=== PATIENT | female | born 1945 | race Caucasian/White ===

== ENCOUNTER → 2017-12-23 08:12 | Outpatient (CLI) | payer MEDICARE, SELFPAY ==
--- NOTE | 2017-12-23 | DI.MG.S_ITS ---
BILATERAL DIGITAL SCREENING MAMMOGRAM 3D/2D WITH CAD: 12/23/2017 CLINICAL: Routine screening. Comparison is made to exams dated: 12/21/2016 mammogram, 12/21/2015 mammogram, and 12/26/2014 mammogram - [facility]. The tissue of both breasts is heterogeneously dense. This may lower the sensitivity of mammography. Current study was also evaluated with a Computer Aided Detection (CAD) system. No significant masses, calcifications, or other findings are seen in either breast. There has been no significant interval change. IMPRESSION: NEGATIVE There is no mammographic evidence of malignancy. A 1 year screening mammogram is recommended. This exam was interpreted at Station ID: [id number]. NOTE: For mammograms, a report in lay terms will be sent to the patient. Approximately 15% of breast malignancies will not be visualized mammographically. In the management of a palpable breast mass, a negative mammogram must not discourage biopsy of a clinically suspicious lesion. Electronically Signed By: Katty will/lamont:12/26/2017 07:44:42 letter sent: Normal Exam ACR BI-RADS Category 1: Negative 3341F
== END ==
PROVIDERS: Family Provider Family Medicine; PCP Family Medicine; Visit Provider Family Medicine
DX: Z12.31 Encounter for screening mammogram for malignant neoplasm of breast (principal)
CPT/HCPCS: 77063; 77067

== ENCOUNTER → 2018-05-08 13:00 | Outpatient (CLI) | payer MEDICARE, SELFPAY | PROVIDERS: Family Provider Family Medicine; PCP Family Medicine | DX: Z23 Encounter for immunization (principal) | CPT/HCPCS: 90471; 90662 ==

== ENCOUNTER → 2018-12-14 09:29 | Outpatient (CLI) | payer MEDICARE, SELFPAY ==
[2018-12-14 10:16] LABS: Add Manual Diff / Slide Review NO; Basophils Absolute Auto 0 /uL (0-100); Basophils Percent Auto 0.6 % (0-2); Eosinophils Absolute Auto 100 /uL (0-450); Eosinophils Percent Auto 2.4 % (2-4); Hematocrit 37.5 % (36-46); Hemoglobin 12.8 g/dL (12.0-16.0); Lymphocytes Absolute Auto 1400 /uL (1100-4500); Lymphocytes Percent Auto 30.9 % (25-40); Mean Corpuscular HGB Conc 34.1 % (30-36); Monocytes Absolute Auto 400 /uL (0-900); Monocytes Percent Auto 7.7 % (3-14); Neutrophils Absolute Auto 2600 /uL (1500-7000); Neutrophils Percent Auto 58.4 % (50-75); Platelet Count 212 X10^3/uL (150-400); Red Blood Cell Count 3.99 X10^6/uL (4.0-5.2); Red Cell Distribution Width 14.2 % (11.6-14.8); White Blood Cell Count 4.5 X10^3/uL (4.5-11.0)
[2018-12-14 11:01] LABS: Alanine Aminotransferase 37 IU/L (9-52); Albumin 4.3 g/dL (3.5-5.0); Albumin Globulin Ratio 1.5 (1.0-2.8); Alkaline Phosphatase 106 U/L (38-126); Aspartate Aminotransferase 47 IU/L (14-36); BUN Creatinine Ratio 32.9 (6-22); Bilirubin Total 0.5 mg/dL (0.2-1.3); Blood Urea Nitrogen 23 mg/dL (7-17); Calcium 9.5 mg/dL (8.4-10.2); Carbon Dioxide 26 mmol/L (22-32); Chloride 106 mmol/L (98-107); Cholesterol 185 mg/dL (140-199); Estimated Glomerular Filt Rate > 60.0 mL/min (>60); Globulin 2.8 g/dL (1.7-4.1); Glucose 97 mg/dL (80-110); HDL Cholesterol 66 mg/dL (40-60); HEMOLYSIS < 15 (0-50); LDL Cholesterol Calculated 101 mg/dL (<100); Potassium 4.4 mmol/L (3.4-5.1); Sodium 142 mmol/L (137-145); Total Protein 7.1 g/dL (6.3-8.2); Triglycerides 88 mg/dL (35-150)
[2018-12-14 11:30] LABS: Thyroid Stimulating Hormone 0.83 uIU/mL (0.47-4.68)
== END ==
PROVIDERS: PCP Family Medicine; Visit Provider Family Medicine
DX: E03.9 Hypothyroidism, unspecified (principal); E78.5 Hyperlipidemia, unspecified
CPT/HCPCS: 36415; 80053; 80061; 84443; 85025

== ENCOUNTER → 2018-12-26 15:25 | Outpatient (CLI) | payer MEDICARE, SELFPAY ==
--- NOTE | 2018-12-26 | DI.MG.S_ITS ---
BILATERAL DIGITAL SCREENING MAMMOGRAM 3D/2D WITH CAD: 12/26/2018 CLINICAL: Routine screening. Comparison is made to exams dated: 12/23/2017 mammogram, 12/21/2016 mammogram, and 12/21/2015 mammogram - [facility]. The tissue of both breasts is heterogeneously dense. This may lower the sensitivity of mammography. Current study was also evaluated with a Computer Aided Detection (CAD) system. No significant masses, calcifications, or other findings are seen in either breast. There has been no significant interval change. IMPRESSION: NEGATIVE There is no mammographic evidence of malignancy. A 1 year screening mammogram is recommended. This exam was interpreted at Station ID: [id number]. NOTE: For mammograms, a report in lay terms will be sent to the patient. Approximately 15% of breast malignancies will not be visualized mammographically. In the management of a palpable breast mass, a negative mammogram must not discourage biopsy of a clinically suspicious lesion. Electronically Signed By: Jaden del rosario/lamont:12/26/2018 18:46:42 letter sent: Normal Exam ACR BI-RADS Category 1: Negative 3341F
== END ==
PROVIDERS: PCP Family Medicine; Visit Provider Family Medicine
DX: Z12.31 Encounter for screening mammogram for malignant neoplasm of breast (principal)
CPT/HCPCS: 77063; 77067

== ENCOUNTER → 2019-04-25 08:43 | Outpatient (CLI) | payer MEDICARE, SELFPAY | PROVIDERS: PCP Family Medicine | DX: Z23 Encounter for immunization (principal) | CPT/HCPCS: 90471; 90662 ==

== ENCOUNTER → 2019-12-31 07:18 | Outpatient (CLI) | payer MEDICARE, SELFPAY ==
--- NOTE | 2019-12-31 | DI.MG.S_ITS ---
BILATERAL DIGITAL SCREENING MAMMOGRAM 3D/2D WITH CAD: 12/31/2019 CLINICAL: Routine screening. Comparison is made to exams dated: 12/26/2018 mammogram, 12/23/2017 mammogram, 12/21/2016 mammogram, 12/18/2014 mammogram, and 12/17/2013 mammogram - [facility]. The tissue of both breasts is heterogeneously dense. This may lower the sensitivity of mammography. Current study was also evaluated with a Computer Aided Detection (CAD) system. No significant masses, calcifications, or other findings are seen in either breast. There has been no significant interval change. IMPRESSION: NEGATIVE There is no mammographic evidence of malignancy. A 1 year screening mammogram is recommended. This exam was interpreted at Station ID: [id number]. NOTE: For mammograms, a report in lay terms will be sent to the patient. Approximately 15% of breast malignancies will not be visualized mammographically. In the management of a palpable breast mass, a negative mammogram must not discourage biopsy of a clinically suspicious lesion. Electronically Signed By: Jaden del rosario/lamont:12/31/2019 15:34:02 letter sent: Normal Exam ACR BI-RADS Category 1: Negative 3341F
[2019-12-31 08:07] LABS: Add Manual Diff / Slide Review NO; Basophils Absolute Auto 0 /uL (0-100); Basophils Percent Auto 0.6 % (0-2); Eosinophils Absolute Auto 100 /uL (0-450); Eosinophils Percent Auto 2.8 % (2-4); Hematocrit 37.4 % (36-46); Lymphocytes Absolute Auto 1600 /uL (1100-4500); Lymphocytes Percent Auto 34.8 % (25-40); Mean Corpuscular HGB Conc 34.8 % (30-36); Mean Corpuscular Hemoglobin 33.4 PG (26-34); Monocytes Absolute Auto 400 /uL (0-900); Monocytes Percent Auto 8.6 % (3-14); Neutrophils Absolute Auto 2500 /uL (1500-7000); Neutrophils Percent Auto 53.2 % (50-75); Platelet Count 203 X10^3/uL (150-400); Red Cell Distribution Width 13.7 % (11.6-14.8); White Blood Cell Count 4.7 X10^3/uL (4.5-11.0)
[2019-12-31 08:19] LABS: Alanine Aminotransferase 37 IU/L (<35); Albumin 4.7 g/dL (3.5-5.0); Albumin Globulin Ratio 1.5 (1.0-2.8); Alkaline Phosphatase 108 U/L (38-126); Aspartate Aminotransferase 50 IU/L (14-36); BUN Creatinine Ratio 36.1 (6-22); Bilirubin Total 0.4 mg/dL (0.2-1.3); Blood Urea Nitrogen 26 mg/dL (7-17); Calcium 9.9 mg/dL (8.4-10.2); Carbon Dioxide 30 mmol/L (22-32); Chloride 105 mmol/L (98-107); Cholesterol 182 mg/dL (140-199); Estimated Glomerular Filt Rate > 60.0 mL/min (>60); Globulin 3.1 g/dL (1.7-4.1); Glucose 109 mg/dL (80-110); HDL Cholesterol 53 mg/dL (40-60); HEMOLYSIS < 15 (0-50); LDL Cholesterol Calculated 103 mg/dL (<100); Potassium 4.4 mmol/L (3.4-5.1); Sodium 142 mmol/L (137-145); Total Protein 7.8 g/dL (6.3-8.2); Triglycerides 131 mg/dL (35-150)
[2019-12-31 10:38] LABS: TSH w/ Reflex to FT4 0.59 uIU/mL (0.47-4.68)
== END ==
PROVIDERS: PCP Family Medicine; Referring Provider Family Medicine; Visit Provider Family Medicine
DX: Z12.31 Encounter for screening mammogram for malignant neoplasm of breast (principal); E03.9 Hypothyroidism, unspecified; E78.5 Hyperlipidemia, unspecified; I10 Essential (primary) hypertension
CPT/HCPCS: 36415; 77063; 77067; 80053; 80061; 84443; 85025

== ENCOUNTER → 2020-02-03 08:24 | Outpatient (CLI) | payer MEDICARE, SELFPAY ==
[2020-02-03 09:30] LABS: BUN Creatinine Ratio 30.2 (6-22); Blood Urea Nitrogen 19 mg/dL (7-17); Calcium 9.8 mg/dL (8.4-10.2); Carbon Dioxide 32 mmol/L (22-32); Chloride 102 mmol/L (98-107); Estimated Glomerular Filt Rate > 60.0 mL/min (>60); Glucose 105 mg/dL (80-110); HEMOLYSIS < 15 (0-50); Potassium 4.3 mmol/L (3.4-5.1); Sodium 139 mmol/L (137-145)
[2020-02-03 10:02] LABS: Thyroid Stimulating Hormone 0.359 uIU/mL (0.47-4.68)
--- NOTE | 2020-02-03 10:44 | DI.CT.S_ITS ---
PROCEDURE: CT ABDOMEN PELVIS W CON INDICATIONS: Surveillance small bowel tumor TECHNIQUE: After the administration of oral and intravenous contrast, 5 mm thick sections acquired from the diaphragms to the symphysis. 5 mm thick coronal and sagittal reformats were performed. For radiation dose reduction, the following was used: automated exposure control, adjustment of mA and/or kV according to patient size. COMPARISON: [facility], CT, ABDOMEN/PELVIS WITH CONTRAST, 06/04/2013, 10:13. [facility], CT, ABDOMEN/PELVIS WITH CONTRAST, 06/29/2012, 11:08. [facility], CT, CHEST/ABD/PEL WITH CONTRAST, 05/26/2014, 10:30. FINDINGS: Image quality: Excellent. ABDOMEN: Lung bases: Lung bases are clear. Heart size is normal. Solid organs: Liver is normal in size and enhancement. Gallbladder appears normal. Biliary system is non-dilated. Pancreas enhances normally. Spleen is normal in size and enhancement. No adrenal nodules. Kidneys are normal in size and enhancement, without hydronephrosis. Peritoneum and bowel: Stomach, small bowel, and colon loops are normal in caliber and wall thickness. No free fluid or air. Nodes and vessels: No retroperitoneal or mesenteric adenopathy. Aorta and inferior vena cava are normal in caliber. Miscellaneous: No ventral hernias. PELVIS: Genitourinary: Bladder wall thickness is normal. Multiple uterine fibroids noted Miscellaneous: No inguinal hernias or adenopathy. Bones: No suspicious bony lesions. No vertebral body compression fractures. 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 Currently the study appears normal for age. Dictated by: Juan France M.D. on 02/03/2020 at 12:11 Approved by: Juan France M.D. on 02/03/2020 at 12:34
== END ==
PROVIDERS: PCP Family Medicine; Referring Provider Family Medicine; Visit Provider Family Medicine
DX: Z01.812 Encounter for preprocedural laboratory examination (principal); D3A.012 Benign carcinoid tumor of the ileum; E03.9 Hypothyroidism, unspecified; D25.9 Leiomyoma of uterus, unspecified
CPT/HCPCS: 36415; 74177; 80048; 84443

== ENCOUNTER → 2020-05-21 | Outpatient (CLI) | payer MEDICARE, SELFPAY | PROVIDERS: PCP Family Medicine; Referring Provider Internal Medicine; Visit Provider Internal Medicine | DX: Z23 Encounter for immunization (principal) | CPT/HCPCS: 90471; 90662 ==

== ENCOUNTER → 2020-12-31 15:55 | Outpatient (CLI) | payer MEDICARE, SELFPAY ==
--- NOTE | 2020-12-31 | DI.MG.S_ITS ---
BILATERAL DIGITAL SCREENING MAMMOGRAM 3D/2D WITH CAD: 12/31/2020 CLINICAL: Routine screening. Comparison is made to exams dated: 12/31/2019 mammogram, 12/26/2018 mammogram, and 12/23/2017 mammogram - [facility]. The tissue of both breasts is heterogeneously dense. This may lower the sensitivity of mammography. Current study was also evaluated with a Computer Aided Detection (CAD) system. No significant masses, calcifications, or other findings are seen in either breast. There has been no significant interval change. IMPRESSION: NEGATIVE There is no mammographic evidence of malignancy. A 1 year screening mammogram is recommended. This exam was interpreted at Station ID: [id number]. NOTE: For mammograms, a report in lay terms will be sent to the patient. Approximately 15% of breast malignancies will not be visualized mammographically. In the management of a palpable breast mass, a negative mammogram must not discourage biopsy of a clinically suspicious lesion. Electronically Signed By: Christy guevara/lamont:12/31/2020 17:33:47 letter sent: Normal Exam ACR BI-RADS Category 1: Negative 3341F
== END ==
PROVIDERS: PCP Family Medicine; Referring Provider Family Medicine; Visit Provider Family Medicine
DX: Z12.31 Encounter for screening mammogram for malignant neoplasm of breast (principal)
CPT/HCPCS: 77063; 77067

== ENCOUNTER → 2021-02-11 08:36 | Outpatient (CLI) | payer MEDICARE, SELFPAY ==
[2021-02-11 09:46] LABS: Add Manual Diff / Slide Review NO; Basophils Absolute Auto 0 /uL (0-100); Basophils Percent Auto 0.6 % (0-2); Eosinophils Absolute Auto 100 /uL (0-450); Eosinophils Percent Auto 2.7 % (2-4); Hematocrit 36.8 % (36-46); Hemoglobin 12.4 g/dL (12.0-16.0); Lymphocytes Absolute Auto 1500 /uL (1100-4500); Lymphocytes Percent Auto 33.2 % (25-40); Mean Corpuscular HGB Conc 33.7 % (30-36); Mean Corpuscular Hemoglobin 32.7 PG (26-34); Mean Corpuscular Volume 97.2 fL (80-100); Monocytes Absolute Auto 300 /uL (0-900); Monocytes Percent Auto 6.5 % (3-14); Neutrophils Absolute Auto 2600 /uL (1500-7000); Platelet Count 216 X10^3/uL (150-400); Red Blood Cell Count 3.78 X10^6/uL (4.0-5.2); Red Cell Distribution Width 12.9 % (11.6-14.8); White Blood Cell Count 4.6 X10^3/uL (4.5-11.0)
[2021-02-11 09:53] LABS: Alanine Aminotransferase 28 IU/L (<35); Albumin 4.3 g/dL (3.5-5.0); Albumin Globulin Ratio 1.5 (1.0-2.8); Alkaline Phosphatase 84 U/L (38-126); Aspartate Aminotransferase 42 IU/L (14-36); BUN Creatinine Ratio 33.3 (6-22); Bilirubin Total 0.3 mg/dL (0.2-1.3); Blood Urea Nitrogen 23 mg/dL (7-17); Calcium 9.6 mg/dL (8.4-10.2); Carbon Dioxide 27 mmol/L (22-32); Chloride 107 mmol/L (98-107); Cholesterol 180 mg/dL (140-199); Estimated Glomerular Filt Rate > 60.0 mL/min (>60); Globulin 2.9 g/dL (1.7-4.1); Glucose 93 mg/dL (80-110); HDL Cholesterol 64 mg/dL (40-60); HEMOLYSIS < 15 (0-50); LDL Cholesterol Calculated 89 mg/dL (<100); Potassium 4.2 mmol/L (3.4-5.1); Sodium 141 mmol/L (137-145); Total Protein 7.2 g/dL (6.3-8.2); Triglycerides 136 mg/dL (35-150)
[2021-02-11 10:44] LABS: Thyroid Stimulating Hormone 1.16 uIU/mL (0.47-4.68)
== END ==
PROVIDERS: PCP Family Medicine; Referring Provider Family Medicine; Visit Provider Family Medicine
DX: E03.9 Hypothyroidism, unspecified (principal); I10 Essential (primary) hypertension; E78.5 Hyperlipidemia, unspecified
CPT/HCPCS: 36415; 80053; 80061; 84443; 85025

== ENCOUNTER 2021-02-24 03:46 | Observation (INO) | payer MEDICARE, SELFPAY ==
[2021-02-24] VITALS (11 sets, daily range): BP systolic 147–192; BP diastolic 79–95; PULSE 66–94; RESP 15–22; TEMP 36.4–37.1; O2SAT 98–99; BMI 21.6
--- NOTE | 2021-02-24 04:02 | PC.NURSE ---
Patient stated that she woke up feeling shaky and was worried about hypertension or thyroid issues and came in to be assessed.
--- NOTE | 2021-02-24 04:09 | DI.RAD.S_ITS ---
PROCEDURE: XR CHEST 1V INDICATIONS: palpitations TECHNIQUE: One view of the chest was acquired. COMPARISON: None. FINDINGS: Surgical changes and devices: None. Lungs and pleura: Lungs are clear. No pleural effusions or pneumothorax. Mediastinum: Mediastinal contours appear normal. Heart size is normal. Bones and chest wall: No suspicious bony lesions. Overlying soft tissues appear unremarkable. IMPRESSION: No acute cardiopulmonary disease process. Dictated by: Manuela Varghese MD, PhD on 02/24/2021 at 8:18 Approved by: Manuela Varghese MD, PhD on 02/24/2021 at 8:18
--- NOTE | 2021-02-24 04:12 | ED_ITS ---
HPI - Anxiety <Maxime Martin MD - Last Filed: 02/27/21 11:51> General Chief Complaint: Anxiety Stated Complaint: jama, anxious Time Seen by Provider: 02/24/21 03:58 Source: patient Mode of arrival: Ambulatory History of Present Illness HPI narrative: Patient awoke this morning an hour ago from sleep with feeling anxious. Describes as palpitations and with effort to catch her breath. Denies denies any chest pain. No headache. No numbness tingling weakness no nausea or sweating. No abdominal pain or back pain. Similar symptoms with her onset of diagnosis of hypothyroidism. Patient denies any recent stressors. No changes in medications. No recent illness fever chills cough cold congestion. Related Data Home Medications Medication Instructions Recorded Confirmed CALCIUM CITRATE (CITRACAL ) 200 mg PO BIDCC #0 11/07/12 02/24/21 FOLIC ACID (#FAMILY PHARMACY FOLIC 0.4 mg PO Q DAY #0 11/07/12 02/24/21 ACID) MULTIVITAMIN (#MULTIPLE VITAMINS) 1 cap PO Q DAY #0 11/07/12 02/24/21 mecobalamin (vitamin B12) 1,000 1,000 mcg PO DAILY 12/30/19 02/24/21 mcg chewable tablet omega-3 fatty acids 1,000 mg 1,000 mg PO DAILY 12/30/20 12/30/20 capsule (Fish Oil Concentrate) Previous Rx's Medication Instructions Recorded levothyroxine 75 mcg tablet 75 mcg PO Q DAY #90 tab 12/30/19 (Synthroid) lisinopril 20 mg tablet 20 mg PO DAILY #90 tab 03/02/20 lovastatin 20 mg tablet 20 mg PO DAILY #90 tab 03/02/20 pantoprazole 40 mg tablet,delayed 40 mg PO QDAY #90 tab 11/16/20 release (Protonix) lovastatin 40 mg tablet 40 mg PO BEDTIME #90 tab 02/15/21 hydrochlorothiazide 12.5 mg tablet 25 mg PO DAILY #90 tab 02/25/21 Allergies Allergy/AdvReac Type Severity Reaction Status Date / Time No Known Drug Allergies Allergy Verified 12/30/20 15:24 Review of Systems <Maxime Martin MD - Last Filed: 02/27/21 11:51> Review of Systems Narrative: GENERAL: Denies chills, fatigue, malaise, fever, sweats. 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 EYES: Pupils equal round No scleral icterus. No injection no discharge ENT: Mucous membranes moist. NECK: Trachea midline. Slightly enlarged thyroid CARDIOVASCULAR: Regular rate and rhythm without murmurs RESPIRATORY: Clear to auscultation. Breath sounds equal bilaterally. No wheezes, rales, or rhonchi. GASTROINTESTINAL: Abdomen soft, non-tender EXTREMITIES: No gross deformities. BACK: No flank tenderness. NEURO: AOx4. SKIN: Warm and dry PSYCH: Not anxious, is cooperative Initial Vital Signs Initial Vital Signs: Vital Signs Pulse Rate 94 H 02/24/21 03:53 Pulse Oximetry 99 02/24/21 03:53 <Carrol Wing DO - Last Filed: 02/24/21 19:06> Initial Vital Signs Initial Vital Signs: Vital Signs Pulse Rate 94 H 02/24/21 03:53 Pulse Oximetry 99 02/24/21 03:53 Course <Maxime Martin MD - Last Filed: 02/27/21 11:51> Course Course Narrative: No new issues during course of stay. No chest pain. Orders Ordered: Discontinued Medications Acetaminophen (Acetaminophen 325 Mg Tablet) 650 mg PO Q6HR PRN PRN Reason: Fever/Mild Pain (1-3) Aspirin (Aspirin 81 Mg Chew Tab) 324 mg PO NOW ONE Stop: 02/24/21 06:00 Last Admin: 02/24/21 06:13 Dose: 324 mg Documented by: JOSE Aspirin (Aspirin Ec 81 Mg Tablet) 81 mg PO DAILY [facility] Atorvastatin Calcium (Atorvastatin 20 Mg Tablet) 20 mg PO BEDTIME [facility] Hydrochlorothiazide (Hydrochlorothiazide 25 Mg Tablet) 12.5 mg PO DAILY [facility] Levothyroxine Sodium (Levothyroxine 75 Mcg Tablet) 75 mcg PO DAILY@0600 [facility] Lisinopril (Lisinopril 20 Mg Tablet) 20 mg PO NOW ONE Stop: 02/24/21 06:29 Last Admin: 02/24/21 08:48 Dose: 20 mg Documented by: FEDERICO Lisinopril (Lisinopril 20 Mg Tablet) 20 mg PO DAILY [facility] Last Admin: 02/24/21 10:40 Dose: 20 mg Documented by: ELKIN Morphine Sulfate (Morphine 2 Mg/Ml Inj) 2 mg IV Q5MIN PRN PRN Reason: Chest Pain Naloxone HCl (Naloxone 0.4 Mg/Ml Vial) 0.2 mg IV Q2MIN PRN PRN Reason: Opiate Reversal Nitroglycerin (Nitroglycerin 0.4 Mg Sl Tab) 0.4 mg SL [id number] PRN PRN Reason: Chest Pain Pantoprazole Sodium (Pantoprazole Dr 40 Mg Tablet) 40 mg PO 0700 [facility] Reevaluation(s) Reevaluation #1: Spoke with patient and results and agree for admission for a stress test. Time: 06:50 Consultations Consultation #1: Spoke with Dr. Chi, cardiology, who recommends patient for treadmill stress test and echocardiogram Consultation #2: Spoke with Dr. Harper, on-call provider for primary care physician, will admit Vital Signs Vital signs: Vital Signs - 8 hr 02/24/21 03:53 02/24/21 03:56 02/24/21 04:00 Temperature 98.1 F Pulse Rate 94 H 91 H 84 Respiratory Rate 22 18 Blood Pressure 157/85 H 182/81 H Pulse Oximetry 99 98 99 02/24/21 04:30 02/24/21 05:00 02/24/21 05:30 Temperature Pulse Rate 73 71 66 Respiratory Rate 18 17 15 Blood Pressure 183/81 H 180/81 H 171/79 H Pulse Oximetry 99 98 98 02/24/21 06:00 Temperature Pulse Rate 67 Respiratory Rate 18 Blood Pressure 177/81 H Pulse Oximetry 98 <Carrol Wing, DO - Last Filed: 02/24/21 19:06> Orders Ordered: Discontinued Medications Acetaminophen (Acetaminophen 325 Mg Tablet) 650 mg PO Q6HR PRN PRN Reason: Fever/Mild Pain (1-3) Aspirin (Aspirin 81 Mg Chew Tab) 324 mg PO NOW ONE Stop: 02/24/21 06:00 Last Admin: 02/24/21 06:13 Dose: 324 mg Documented by: JOSE Aspirin (Aspirin Ec 81 Mg Tablet) 81 mg PO DAILY [facility] Atorvastatin Calcium (Atorvastatin 20 Mg Tablet) 20 mg PO BEDTIME [facility] Hydrochlorothiazide (Hydrochlorothiazide 25 Mg Tablet) 12.5 mg PO DAILY [facility] Levothyroxine Sodium (Levothyroxine 75 Mcg Tablet) 75 mcg PO DAILY@0600 [facility] Lisinopril (Lisinopril 20 Mg Tablet) 20 mg PO NOW ONE Stop: 02/24/21 06:29 Last Admin: 02/24/21 08:48 Dose: 20 mg Documented by: FEDERICO Lisinopril (Lisinopril 20 Mg Tablet) 20 mg PO DAILY [facility] Last Admin: 02/24/21 10:40 Dose: 20 mg Documented by: ELKIN Morphine Sulfate (Morphine 2 Mg/Ml Inj) 2 mg IV Q5MIN PRN PRN Reason: Chest Pain Naloxone HCl (Naloxone 0.4 Mg/Ml Vial) 0.2 mg IV Q2MIN PRN PRN Reason: Opiate Reversal Nitroglycerin (Nitroglycerin 0.4 Mg Sl Tab) 0.4 mg SL [id number] PRN PRN Reason: Chest Pain Pantoprazole Sodium (Pantoprazole Dr 40 Mg Tablet) 40 mg PO 0700 [facility] Vital Signs Vital signs: Vital Signs - 8 hr 02/24/21 03:53 02/24/21 03:56 02/24/21 04:00 Temperature 98.1 F Pulse Rate 94 H 91 H 84 Respiratory Rate 22 18 Blood Pressure 157/85 H 182/81 H Pulse Oximetry 99 98 99 02/24/21 04:30 02/24/21 05:00 02/24/21 05:30 Temperature Pulse Rate 73 71 66 Respiratory Rate 18 17 15 Blood Pressure 183/81 H 180/81 H 171/79 H Pulse Oximetry 99 98 98 02/24/21 06:00 Temperature Pulse Rate 67 Respiratory Rate 18 Blood Pressure 177/81 H Pulse Oximetry 98 MDM - Anxiety <Maxime Martin MD - Last Filed: 02/27/21 11:51> Differential Diagnosis Differential diagnosis: Likely other (Atypical chest pain/palpitations) Lab Data Result diagrams: 02/24/21 04:22 02/24/21 04:22 Labs: Lab Results 02/24/21 02/24/21 02/24/21 Range/Units 04:22 04:22 04:22 WBC 5.8 (4.5-11.0) X10^3/uL RBC 3.95 L (4.0-5.2) X10^6/uL Hgb 13.1 (12.0-16.0) g/dL Hct 38.5 (36-46) % MCV 97.4 (80-100) fL MCH 33.2 (26-34) PG MCHC 34.1 (30-36) % RDW 12.9 (11.6-14.8) % Plt Count 226 (150-400) X10^3/uL Neut % (Auto) 41.5 L (50-75) % Lymph % (Auto) 46.7 H (25-40) % Turner % (Auto) 7.8 (3-14) % Eos % (Auto) 3.4 (2-4) % Baso % (Auto) 0.6 (0-2) % Neut # (Auto) 2400 (3220-5425) /uL Lymph # (Auto) 2700 (5031-4760) /uL Turner # (Auto) 400 (0-900) /uL Eos # (Auto) 200 (0-450) /uL Baso # (Auto) 0 (0-100) /uL Sodium 142 (137-145) mmol/L Potassium 3.9 (3.4-5.1) mmol/L Chloride 110 H (98-107) mmol/L Carbon Dioxide 25 (22-32) mmol/L BUN 18 H (7-17) mg/dL Creatinine 0.59 (0.52-1.04) mg/dL Estimated GFR > 60.0 (>60) mL/min BUN/Creatinine Ratio 30.5 H (6-22) Glucose 132 H (80-110) mg/dL Calcium 9.5 (8.4-10.2) mg/dL Total Bilirubin 0.3 (0.2-1.3) mg/dL AST 54 H (14-36) IU/L ALT 33 (<35) IU/L Alkaline Phosphatase 117 (38-126) U/L Total Creatine Kinase 240 H (30-135) U/L CK-MB (CK-2) 4.18 H (<2.37) ng/mL CK-MB (CK-2) Rel Index 1.7 (1.5-5.0) % Troponin I < 0.012 (0.01-0.034) ng/mL Total Protein 7.6 (6.3-8.2) g/dL Albumin 4.4 (3.5-5.0) g/dL Globulin 3.2 (1.7-4.1) g/dL Albumin/Globulin Ratio 1.4 (1.0-2.8) TSH 2.59 D (0.47-4.68) uIU/mL Imaging Data Chest x-ray: Radiologist's Impression: Read by overnight radiologist no acute cardiopulmonary abnormality is identified ECG Data Interpretation: Normal sinus rhythm rate [address] elevation depression normal EKG MDM Narrative Medical decision making narrative: Appropriate for admission/stress test and ech ocardiogram with history of hypertension hyperlipidemia and family history of heart disease. Patient has never had a stress test before. Patient and agree for admit <Carrol Wing DO - Last Filed: 02/24/21 19:06> Lab Data Labs: Lab Results 02/24/21 02/24/21 02/24/21 Range/Units 04:22 04:22 04:22 WBC 5.8 (4.5-11.0) X10^3/uL RBC 3.95 L (4.0-5.2) X10^6/uL Hgb 13.1 (12.0-16.0) g/dL Hct 38.5 (36-46) % MCV 97.4 (80-100) fL MCH 33.2 (26-34) PG MCHC 34.1 (30-36) % RDW 12.9 (11.6-14.8) % Plt Count 226 (150-400) X10^3/uL Neut % (Auto) 41.5 L (50-75) % Lymph % (Auto) 46.7 H (25-40) % Turner % (Auto) 7.8 (3-14) % Eos % (Auto) 3.4 (2-4) % Baso % (Auto) 0.6 (0-2) % Neut # (Auto) 2400 (0163-7457) /uL Lymph # (Auto) 2700 (9484-4465) /uL Turner # (Auto) 400 (0-900) /uL Eos # (Auto) 200 (0-450) /uL Baso # (Auto) 0 (0-100) /uL Sodium 142 (137-145) mmol/L Potassium 3.9 (3.4-5.1) mmol/L Chloride 110 H (98-107) mmol/L Carbon Dioxide 25 (22-32) mmol/L BUN 18 H (7-17) mg/dL Creatinine 0.59 (0.52-1.04) mg/dL Estimated GFR > 60.0 (>60) mL/min BUN/Creatinine Ratio 30.5 H (6-22) Glucose 132 H (80-110) mg/dL Calcium 9.5 (8.4-10.2) mg/dL Total Bilirubin 0.3 (0.2-1.3) mg/dL AST 54 H (14-36) IU/L ALT 33 (<35) IU/L Alkaline Phosphatase 117 (38-126) U/L Total Creatine Kinase 240 H (30-135) U/L CK-MB (CK-2) 4.18 H (<2.37) ng/mL CK-MB (CK-2) Rel Index 1.7 (1.5-5.0) % Troponin I < 0.012 (0.01-0.034) ng/mL Total Protein 7.6 (6.3-8.2) g/dL Albumin 4.4 (3.5-5.0) g/dL Globulin 3.2 (1.7-4.1) g/dL Albumin/Globulin Ratio 1.4 (1.0-2.8) TSH 2.59 D (0.47-4.68) uIU/mL MDM Narrative Medical decision making narrative: Appropriate for admission/stress test and echocardiogram with history of hypertension hyperlipidemia and family history of heart disease. Patient has never had a stress test before. Patient and agree for admit. LEONELA-patient was never seen or evaluated by me. In the emergency department only boarding and bleeding until bed available, which happened relatively quickly Discharge Plan Departure Patient Disposition: Admitted as Observation Clinical Impression: Atypical chest pain Admit Date/Time: 02/24/21 06:00 Admit Provider: Dilip Harper
[2021-02-24 04:32] LABS: Add Manual Diff / Slide Review NO; Basophils Absolute Auto 0 /uL (0-100); Basophils Percent Auto 0.6 % (0-2); Eosinophils Absolute Auto 200 /uL (0-450); Eosinophils Percent Auto 3.4 % (2-4); Hematocrit 38.5 % (36-46); Hemoglobin 13.1 g/dL (12.0-16.0); Lymphocytes Absolute Auto 2700 /uL (1100-4500); Lymphocytes Percent Auto 46.7 % (25-40); Mean Corpuscular HGB Conc 34.1 % (30-36); Mean Corpuscular Hemoglobin 33.2 PG (26-34); Mean Corpuscular Volume 97.4 fL (80-100); Monocytes Absolute Auto 400 /uL (0-900); Monocytes Percent Auto 7.8 % (3-14); Neutrophils Absolute Auto 2400 /uL (1500-7000); Neutrophils Percent Auto 41.5 % (50-75); Platelet Count 226 X10^3/uL (150-400); Red Blood Cell Count 3.95 X10^6/uL (4.0-5.2); Red Cell Distribution Width 12.9 % (11.6-14.8); White Blood Cell Count 5.8 X10^3/uL (4.5-11.0)
[2021-02-24 04:38] LABS: Alanine Aminotransferase 33 IU/L (<35); Albumin 4.4 g/dL (3.5-5.0); Albumin Globulin Ratio 1.4 (1.0-2.8); Alkaline Phosphatase 117 U/L (38-126); Aspartate Aminotransferase 54 IU/L (14-36); BUN Creatinine Ratio 30.5 (6-22); Bilirubin Total 0.3 mg/dL (0.2-1.3); Blood Urea Nitrogen 18 mg/dL (7-17); Calcium 9.5 mg/dL (8.4-10.2); Carbon Dioxide 25 mmol/L (22-32); Chloride 110 mmol/L (98-107); Creatine Kinase 240 U/L (30-135); Estimated Glomerular Filt Rate > 60.0 mL/min (>60); Globulin 3.2 g/dL (1.7-4.1); Glucose 132 mg/dL (80-110); HEMOLYSIS 16 (0-50); Potassium 3.9 mmol/L (3.4-5.1); Sodium 142 mmol/L (137-145); Total Protein 7.6 g/dL (6.3-8.2)
[2021-02-24 04:49] LABS: Troponin I < 0.012 ng/mL (0.01-0.034)
[2021-02-24 04:53] LABS: CKMB % Relative Index 1.7 % (1.5-5.0); Creatine Kinase MB 4.18 ng/mL (<2.37)
[2021-02-24 05:18] LABS: Thyroid Stimulating Hormone 2.59 uIU/mL (0.47-4.68)
[2021-02-24] MEDS: ASPIRIN 81 MG CHEW TAB 324 MG PO (06:13)
[2021-02-24 07:04] LABS: COVID19 - ADMIT (NP swab/PCR) Negative (Negative)
--- NOTE | 2021-02-24 08:00 | PC.NURSE ---
Pt height 5'5, last food intake 9pm on 02/23/21 and last caffeine intake of 1 cup of coffee at the same time, 9pm.
--- NOTE | 2021-02-24 08:27 | PM.HP.1 ---
History of Present Illness History of Present Illness Date Patient Seen: 02/24/21 Time Patient Seen: 08:27 Chief complaint: shakey, anxious Narrative: 75-year-old female normally sees Dr. Escobar. She is a long-term employee of [employer] She awaken from sleep feeling anxious with a sense of palpitations and feeling like it was an effort to catch her breath. Not really having any chest pain or pressure. No symptoms in her neck jaw arms shoulders. No abdominal pain. She presented to the emergency department with the symptoms was evaluated. Had a normal EKG normal troponin basically normal evaluation. Cardiology was consulted who recommended patient be admitted for regular exercise stress testing and echocardiogram. Apparently she did have a few PVCs on telemetry monitoring although not captured during her 12 lead. Patient also minimally hypertensive. Tells me she recently discontinued her hydrochlorothiazide which was low-dose at the suggestion of her PCP and wonders if that is contributing to her symptoms. 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) Hyperlipidemia (05/17/11) Polyp of fallopian tube (05/05/15) Surgical History Status post colectomy Status post surgery (06/15/12) Family & Social History Family History Brother Cancer Sister Heart disease Safety & Behavioral: Feels Safe in Current Yes Environment Been Physically Hurt or No Threatened By a Person Tobacco & Substance use: Smoking Status Former smoker alcohol intake current alcohol intake frequency a few times a week Substance Use Type does not use Meds Home Medications and Allergies Home Medications Medication Instructions Recorded Confirmed Type CALCIUM CITRATE (CITRACAL ) 200 mg PO BIDCC #0 11/07/12 12/30/20 History FOLIC ACID (#FAMILY PHARMACY FOLIC 0.4 mg PO Q DAY #0 11/07/12 12/30/20 History ACID) MULTIVITAMIN (#MULTIPLE VITAMINS) 1 cap PO Q DAY #0 11/07/12 12/30/20 History hydrochlorothiazide 12.5 mg tablet 12.5 mg PO DAILY #90 tab 12/30/19 12/30/20 Rx levothyroxine 75 mcg tablet 75 mcg PO Q DAY #90 tab 12/30/19 12/30/20 Rx (Synthroid) mecobalamin (vitamin B12) 1,000 1,000 mcg PO DAILY 12/30/19 12/30/20 History mcg chewable tablet lisinopril 20 mg tablet 20 mg PO DAILY #90 tab 03/02/20 12/30/20 Rx lovastatin 20 mg tablet 20 mg PO DAILY #90 tab 03/02/20 12/30/20 Rx pantoprazole 40 mg tablet,delayed 40 mg PO QDAY #90 tab 11/16/20 12/30/20 Rx release (Protonix) omega-3 fatty acids 1,000 mg 1,000 mg PO DAILY 12/30/20 12/30/20 History capsule (Fish Oil Concentrate) lovastatin 40 mg tablet 40 mg PO BEDTIME #90 tab 02/15/21 Rx Allergies Allergy/AdvReac Type Severity Reaction Status Date / Time No Known Drug Allergies Allergy Verified 12/30/20 15:24 Review of Systems Constitutional Constitutional: Denies excessive sweating, Denies fever(s), Denies headache(s), Denies weakness, Denies weight gain and Denies weight loss Eyes Eyes: Denies change in vision, Denies itchy eyes, Denies loss of vision and Denies other visual disturbances ENT Ears, Nose, Mouth, and Throat: No change in voice, No dysphagia, No dizziness, No otalgia, No headache(s), No hoarseness, No lip swelling, No neck pain, No sore throat, No throat swelling and No tongue swelling Cardiovascular Cardiovascular: Denies syncope Respiratory Respiratory: Denies chest congestion, Denies cough, Denies hemoptysis, Denies stridor and Denies wheezing Gastrointestinal Gastrointestinal: Denies abdominal pain, Denies bloating, Denies change in bowel habits, Denies change in stool character, Denies dysphagia, Denies nausea, Denies vomiting and Denies hematemesis Genitourinary Genitourinary: Denies hematuria, Denies urinary frequency and Denies difficulty voiding Musculoskeletal Musculoskeletal: Denies abnormal gait, Denies myalgias, Denies arthralgias, Denies limited range of motion and Denies neck pain Neurologic Neurologic: Denies abnormal speech, Denies abnormal gait, Denies behavioral changes, Denies confusion, Denies dizziness, Denies syncope, Denies headache(s), Denies loss of vision, Denies memory loss, Denies seizure-like activity, Denies paresthesias and Denies weakness Psychiatric Psychiatric: Denies behavioral changes, Denies confusion and Denies memory loss Endocrine Endocrine: Denies excessive sweating Allergic/Immunologic Allergic/Immunologic: Denies itchy eyes, Denies lip swelling, Denies throat swelling, Denies tongue swelling and Denies wheezing Exam Vital Signs (past 8 hours): - 02/24/21 03:53 02/24/21 03:56 02/24/21 04:00 Temperature 98.1 F Pulse Rate 94 H 91 H 84 Respiratory Rate 22 18 Blood Pressure 157/85 H 182/81 H Pulse Oximetry 99 98 99 02/24/21 04:30 02/24/21 05:00 02/24/21 05:30 Temperature Pulse Rate 73 71 66 Respiratory Rate 18 17 15 Blood Pressure 183/81 H 180/81 H 171/79 H Pulse Oximetry 99 98 98 02/24/21 06:00 Temperature Pulse Rate 67 Respiratory Rate 18 Blood Pressure 177/81 H Pulse Oximetry 98 Oxygen Delivery Method Room Air Narrative Exam Narrative: Elderly female in no obvious distress HEENT-unremarkable, normocephalic atraumatic Neck-no lymphadenopathy no bruits Lungs-clear anteriorly and posteriorly no wheezes no crackles good breath sounds Heart-regular rate and rhythm, no murmur, rub, or gallop. normal S1-S2 Abdomen-positive bowel tones, soft, nontender, nondistended, no hepatosplenomegaly, no masses palpable Neuro-normal to screening exam, gait not tested Extremities-no cyanosis clubbing or edema Objective Labs Result Diagrams: 02/24/21 04:22 02/24/21 04:22 Labs: Laboratory Results - last 24 hr 02/24/21 02/24/21 02/24/21 04:22 04:22 04:22 WBC 5.8 RBC 3.95 L Hgb 13.1 Hct 38.5 MCV 97.4 MCH 33.2 MCHC 34.1 RDW 12.9 Plt Count 226 Neut % (Auto) 41.5 L Lymph % (Auto) 46.7 H [place] % (Auto) 7.8 Eos % (Auto) 3.4 Baso % (Auto) 0.6 Neut # (Auto) 2400 Lymph # (Auto) 2700 [place] # (Auto) 400 Eos # (Auto) 200 Baso # (Auto) 0 Sodium 142 Potassium 3.9 Chloride 110 H Carbon Dioxide 25 BUN 18 H Creatinine 0.59 Estimated GFR > 60.0 BUN/Creatinine Ratio 30.5 H Glucose 132 H Calcium 9.5 Total Bilirubin 0.3 AST 54 H ALT 33 Alkaline Phosphatase 117 Total Creatine Kinase 240 H CK-MB (CK-2) 4.18 H CK-MB (CK-2) Rel Index 1.7 Troponin I < 0.012 Total Protein 7.6 Albumin 4.4 Globulin 3.2 Albumin/Globulin Ratio 1.4 TSH 2.59 D SARS-CoV-2 (PCR) 02/24/21 06:08 WBC RBC Hgb Hct MCV MCH MCHC RDW Plt Count Neut % (Auto) Lymph % (Auto) [place] % (Auto) Eos % (Auto) Baso % (Auto) Neut # (Auto) Lymph # (Auto) [place] # (Auto) Eos # (Auto) Baso # (Auto) Sodium Potassium Chloride Carbon Dioxide BUN Creatinine Estimated GFR BUN/Creatinine Ratio Glucose Calcium Total Bilirubin AST ALT Alkaline Phosphatase Total Creatine Kinase CK-MB (CK-2) CK-MB (CK-2) Rel Index Troponin I Total Protein Albumin Globulin Albumin/Globulin Ratio TSH SARS-CoV-2 (PCR) Negative Assessment & Plan Assessment & Plan narrative: Patient with atypical symptoms including sense of palpitations and dyspnea without objective findings to support diagnosis or etiology for either normal 12 lead ECG and troponin. Normal oxygen saturation chest x-ray. Thyroid studies normal as patient reports she had similar symptoms with her diagnosis of her thyroid disease. Cardiology recommended not enhance cardiac stress testing and echocardiogram. That can be accomplished and if stress test is normal she can likely be discharged home This is a very atypical presentation for cardiac ischemia which seems extremely unlikely in the setting. More likely be an element of anxiety and perhaps that deserves further evaluation as patient does report previous episodes of similar symptoms she thought related to her thyroid diagnosis etcetera For now will rule out cardiac ischemia as a source of symptoms and able to do that will discharge with plans for close outpatient follow-up by her PCP Dr. Escobar. I will add her hydrochlorothiazide back to her antihypertensive regimen at full dose 25 mg daily given her hypertension in the hospital/ER here.
[2021-02-24] MEDS: lisinopriL 20 MG TABLET PO ×2 (08:48→10:40)
--- NOTE | 2021-02-24 09:55 | PM.TREADMILL ---
Cardiac Stress Test Report Referral & Results Date Patient Seen: 02/24/21 Time Patient Seen: 09:55 Requesting provider: Dilip Harper Indication: Atypical chest pain Rest ECG: Unremarkable, occasional PVC Procedure Note: Today following both written and verbal informed consent, the patient was exercised according to a standard Dario protocol. The patient exercised for a total of 6 minutes achieving a maximum heart rate of 149. Patient's maximum systolic blood pressure was 200. This was an estimated 7.0 MET's. There are no ST-T segment changes Normal heart rate and blood pressure response to exercise Occasional PAC including brief 2-3 bursts of supraventricular origin or SVT Functional aerobic impairment rates-10% on the active scale or 10% better than average Impression: No evidence of ischemia Excellent exercise capacity Please note: Actual ECG tracings can be found in the PACS system.
--- NOTE | 2021-02-24 10:10 | DI.ECHO.S_ITS ---
[facility] +---------+ [facility] +---------+ : : [address] : : : : [id number] : : : : Phone: [phone]+ Echocardiogram Report + + :Name: JOSELYN VICTORIA Study Date: 02/24/2021 Height: 65 in : :[facility] ReadingLocation: Weight: 130 lb : : Gender: Female BSA: 1.6 m2 : :: 1945 Age: 75 yrs BP: 171/79 mmHg: :Reason For Study: CHEST PAIN : :Ordering Physician: KATHERINE, : :RICK Doyle Performed By: Heidi Dior : :Referring: RICK MURPHY : + + Interpretation Summary The left ventricle is normal in size and wall thickness. The ejection fraction is estimated to be 60-65%. The right ventricle is normal in size and function. No significant valvular pathology seen. The IVC is of normal diameter and collapses greater than 50% with a sniff. This suggests a low right atrial pressure of 3 mm Hg. BP: 171/79 mmHg. Procedure: A two-dimensional transthoracic echocardiogram with color flow and Doppler was performed. The study quality was technically adequate. There is no prior echocardiogram noted for this patient. The patient was in sinus rhythm with heart rates between 60-70 bpm during the exam. Left Ventricle: The left ventricle is normal in size and wall thickness. There is no thrombus. The ejection fraction is estimated to be 60-65%. There are no focal wall motion abnormalities. Diastolic parameters suggest a relaxation abnormality of the left ventricle, consistent with probable normal filling pressures. Right Ventricle: The right ventricle is normal in size and function. Atria: The left atrial size is normal. The right atrium is normal in size. There is no Doppler evidence for an interatrial shunt. Mitral Valve: The mitral valve is normal. There is trace mitral regurgitation. Aortic Valve: The aortic valve is trileaflet. The aortic valve opens well. There is no aortic valve stenosis. No aortic regurgitation is present. Tricuspid Valve: The tricuspid valve is normal in structure and function. There is trace tricuspid regurgitation. The right ventricular systolic pressure is estimated to be at least 28 mmHg based on an estimated right atrial pressure of 3 mm Hg. Pulmonic Valve: The pulmonic valve leaflets are thin and pliable; valve motion is normal. There is trace pulmonic regurgitation. Great Vessels: The aortic root is normal size. The dimensions of the ascending aorta are normal. The IVC is of normal diameter and collapses greater than 50% with a sniff. This suggests a low right atrial pressure of 3 mm Hg. Pericardium/ Pleura There is no pericardial effusion. There is no pleural effusion. MMode/2D Measurements & Calculations LVIDd: 4.6 cm LVOT diam: 2.0 cm LVIDs: 3.2 cm Ao root diam: 3.0 cm FS: 30.8 % asc Aorta Diam: 2.9 cm IVSd: 0.85 cm Ao Arch Diam (Prox Trans): 2.4 cm LVPWd: 0.70 cm LV acosta. diameter/BSA (cm/m^2): 2.8 LV sys. diameter/BSA (cm/m^2): 1.9 LA A2 area: 15.6 cm2 RA long axis: 5.0 cm LA A4 area: 15.8 cm2 RA area: 15.1 cm2 LA length (vol): 4.9 cm RA vol: 38.8 ml LA vol: 42.2 ml RA : 23.5 ml/m2 LA vol index: 25.6 ml/m2 IVC diam: 1.4 cm RVD1 (basal): 3.9 cm TAPSE: 2.2 cm Doppler Measurements & Calculations Ao V2 max: 163.3 cm/sec LVOT Max Alan: 110.2 cm/sec Ao V2 mean: 103.3 cm/sec LV V1 max P.9 mmHg Ao max P.7 mmHg LV V1 VTI: 23.4 cm Ao mean P.0 mmHg BECKY(I,D): 2.1 cm2 Ao V2 VTI: 33.8 cm BECKY(V,D): 2.1 cm2 sev ratio: 0.69 BECKY indexed to BSA (cm^2/m^2): 1.3 MV E max alan: 73.7 cm/sec TR max alan: 251.0 cm/sec MV A max alan: 131.0 cm/sec TR max P.2 mmHg MV E/A: 0.56 PA V2 max: 117.5 cm/sec Med Peak E' Alan: 5.4 cm/sec PA V2 mean: 80.4 cm/sec E/E' med: 13.7 PA mean P.0 mmHg Lat Peak E' Alan: 9.5 cm/sec PA pr(Accel): 24.2 mmHg E/E' lat: 7.8 E/e' average: 10.7 MV dec time: 0.27 sec SVLVOT): 71.2 ml Reading Physician:03:06 PM
[2021-02-24 10:57] LABS: Troponin I < 0.012 ng/mL (0.01-0.034)
--- NOTE | 2021-02-24 17:58 | PC.NURSE ---
Evening Shift/ Discharge Note- Patient discharged home per MD. Discharge instructions and education reviewed with patient and signed. IV line removed and bandaid applied. Tele monitor removed. Patient dressed self and packed up personal items. Patient taken by wheelchair to met spouse at ER entrance at 1745.
== END 2021-02-24 17:45 | disposition home or self-care (01) ==
LOC: ED 06:01 → AC 06:01
PROVIDERS: Emergency Medicine; Admitting Provider Internal Medicine; Emergency Provider Emergency Medicine; PCP Family Medicine; Visit Provider Family Medicine
DX: F41.9 Anxiety disorder, unspecified (principal); E03.9 Hypothyroidism, unspecified; E78.5 Hyperlipidemia, unspecified; R00.2 Palpitations; I10 Essential (primary) hypertension; R06.00 Dyspnea, unspecified; Z20.822 Contact with and (suspected) exposure to COVID-19
CPT/HCPCS: 36415; 71045; 80053; 82550; 82553; 84443; 84484; 85025; 87635; 93005; 93010; 93016; 93017; 93018; 93306; 99235; 99284; C9803; G0378

== ENCOUNTER → 2021-05-29 18:19 | Outpatient (CLI) | payer MEDICARE, SELFPAY ==
[2021-02-24 10:44] VITALS: BMI 21.6
== END ==
PROVIDERS: PCP Family Medicine; Referring Provider Internal Medicine; Visit Provider Internal Medicine
DX: Z23 Encounter for immunization (principal)
CPT/HCPCS: 90471; 90686

== ENCOUNTER → 2022-01-04 06:51 | Outpatient (CLI) | payer MEDICARE, SELFPAY ==
[2021-02-24 10:44] VITALS: BMI 21.6
--- NOTE | 2022-01-04 | DI.MG.S_ITS ---
BILATERAL DIGITAL SCREENING MAMMOGRAM 3D/2D WITH CAD: 01/04/2022 CLINICAL: Routine screening. Comparison is made to exams dated: 12/31/2020 mammogram, 12/31/2019 mammogram, and 12/26/2018 mammogram - [facility]. The tissue of both breasts is heterogeneously dense. This may lower the sensitivity of mammography. Current study was also evaluated with a Computer Aided Detection (CAD) system. No significant masses, calcifications, or other findings are seen in either breast. There has been no significant interval change. IMPRESSION: NEGATIVE There is no mammographic evidence of malignancy. A 1 year screening mammogram is recommended. This exam was interpreted at Station ID: [id number]. NOTE: For mammograms, a report in lay terms will be sent to the patient. Approximately 15% of breast malignancies will not be visualized mammographically. In the management of a palpable breast mass, a negative mammogram must not discourage biopsy of a clinically suspicious lesion. Electronically Signed By: Arden javed/lamont:01/04/2022 15:16:04 letter sent: Normal Exam ACR BI-RADS Category 1: Negative 3341F
[2022-01-04 08:07] LABS: Add Manual Diff / Slide Review NO; Basophils Absolute Auto 0 /uL (0-100); Basophils Percent Auto 0.7 % (0-2); Eosinophils Absolute Auto 200 /uL (0-450); Eosinophils Percent Auto 3.6 % (2-4); Hematocrit 37.3 % (36-46); Hemoglobin 13.1 g/dL (12.0-16.0); Lymphocytes Absolute Auto 1700 /uL (1100-4500); Lymphocytes Percent Auto 37.6 % (25-40); Mean Corpuscular Hemoglobin 33.4 PG (26-34); Mean Corpuscular Volume 95.3 fL (80-100); Monocytes Absolute Auto 400 /uL (0-900); Monocytes Percent Auto 9.2 % (3-14); Neutrophils Absolute Auto 2300 /uL (1500-7000); Neutrophils Percent Auto 48.9 % (50-75); Platelet Count 234 X10^3/uL (150-400); Red Blood Cell Count 3.92 X10^6/uL (4.0-5.2); Red Cell Distribution Width 13.1 % (11.6-14.8); White Blood Cell Count 4.6 X10^3/uL (4.5-11.0)
[2022-01-04 08:09] LABS: Alanine Aminotransferase 25 IU/L (<35); Albumin 4.7 g/dL (3.5-5.0); Albumin Globulin Ratio 1.6 (1.0-2.8); Alkaline Phosphatase 93 U/L (38-126); Aspartate Aminotransferase 46 IU/L (14-36); BUN Creatinine Ratio 41.8 (6-22); Bilirubin Total 0.6 mg/dL (0.2-1.3); Blood Urea Nitrogen 33 mg/dL (7-17); Calcium 9.7 mg/dL (8.4-10.2); Carbon Dioxide 32 mmol/L (22-32); Chloride 101 mmol/L (98-107); Cholesterol 196 mg/dL (140-199); Estimated Glomerular Filt Rate > 60 mL/min (>60); Globulin 2.9 g/dL (1.7-4.1); Glucose 111 mg/dL (80-110); HDL Cholesterol 89 mg/dL (40-60); HEMOLYSIS < 15 (0-50); LDL Cholesterol Calculated 90 mg/dL (<100); Potassium 4.4 mmol/L (3.4-5.1); Sodium 140 mmol/L (137-145); Total Protein 7.6 g/dL (6.3-8.2); Triglycerides 85 mg/dL (35-150)
[2022-01-04 08:12] LABS: Hemoglobin A1C% w Est Avg Glu 5.7 % (4.0-6.0)
[2022-01-04 08:40] LABS: TSH w/ Reflex to FT4 2.38 uIU/mL (0.47-4.68)
== END ==
PROVIDERS: PCP Family Medicine; Referring Provider Family Medicine; Visit Provider Family Medicine
DX: E03.9 Hypothyroidism, unspecified (principal); I10 Essential (primary) hypertension; E78.5 Hyperlipidemia, unspecified; Z12.31 Encounter for screening mammogram for malignant neoplasm of breast
CPT/HCPCS: 36415; 77063; 77067; 80053; 80061; 83036; 84443; 85025

== ENCOUNTER → 2022-02-08 15:51 | Outpatient (CLI) | payer MEDICARE, SELFPAY ==
[2021-02-24 10:44] VITALS: BMI 21.6
== END ==
PROVIDERS: PCP Family Medicine; Visit Provider Physician Assistant
DX: N39.0 Urinary tract infection, site not specified (principal)
CPT/HCPCS: 87086

== ENCOUNTER → 2022-02-23 09:41 | Outpatient (CLI) | payer MEDICARE, SELFPAY ==
[2021-02-24 10:44] VITALS: BMI 21.6
[2022-02-23 10:45] LABS: COVID19 -Nasal RAPID Negative (Negative)
== END ==
PROVIDERS: PCP Family Medicine; Visit Provider Surgery
DX: Z20.822 Contact with and (suspected) exposure to COVID-19 (principal); Z01.812 Encounter for preprocedural laboratory examination
CPT/HCPCS: 87635; C9803

== ENCOUNTER 2022-02-24 06:49 | Day surgery (SDC) | payer MEDICARE, SELFPAY ==
[2021-02-24 10:44] VITALS: BMI 21.6
[2022-02-24 07:15] VITALS: BP 142/77; PULSE 63; RESP 16; TEMP 36.8; O2SAT 100; BMI 23.3
[2022-02-24] MEDS: LACTATED RINGERS 1,000 ML 42 ML IV (07:37)
--- NOTE | 2022-02-24 07:41 | P.HP_ITS ---
History of Present Illness History of Present Illness Date Patient Seen: 02/24/22 Time Patient Seen: 07:41 Chief complaint: [facility] [place] Narrative: Julissa is a 76-year-old woman who is due for colonoscopy. She believes he it has been about 10 years since her last colonoscopy. 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 Manzo. She believes he removed portion of her right colon. 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) Hyperlipidemia (05/17/11) Polyp of fallopian tube (05/05/15) Surgical History Status post colectomy Status post surgery (06/15/12) Family & Social History Family History Brother Cancer Sister Heart disease Social History: household members spouse Tobacco & Substance use: Smoking Status Former smoker alcohol intake current alcohol intake frequency a few times a week Substance Use Type does not use Meds Home Medications and Allergies Home Medications Medication Instructions Recorded Confirmed Type CALCIUM CITRATE (CITRACAL ) 200 mg PO BIDCC ##0 11/07/12 01/03/22 History FOLIC ACID (#FAMILY PHARMACY FOLIC 0.4 mg PO Q DAY ##0 11/07/12 01/03/22 History ACID) MULTIVITAMIN (#MULTIPLE VITAMINS) 1 cap PO Q DAY ##0 11/07/12 01/03/22 History mecobalamin (vitamin B12) 1,000 1,000 mcg PO DAILY 12/30/19 01/03/22 History mcg chewable tablet omega-3 fatty acids 1,000 mg 1,000 mg PO DAILY 12/30/20 01/03/22 History capsule (Fish Oil Concentrate) lovastatin 40 mg tablet 40 mg PO BEDTIME #90 tabs 02/15/21 02/24/22 Rx cyclobenzaprine 5 mg tablet 5 mg PO TID PRN muscle spasm #20 03/01/21 01/03/22 Rx tabs levothyroxine 75 mcg tablet See Rx Instructions .Route 03/08/21 02/24/22 Rx (Synthroid) .COMPLEX #90 tabs lisinopril 20 mg tablet See Rx Instructions .Route 03/08/21 02/24/22 Rx .COMPLEX #90 tabs lovastatin 20 mg tablet See Rx Instructions .Route 03/08/21 02/24/22 Rx .COMPLEX #90 tabs hydrochlorothiazide 25 mg tablet 25 mg PO DAILY #90 tabs 02/09/22 02/24/22 Rx sodium sul 1.479 gram-potas ch See Rx Instructions PO PER PKG DIR 02/21/22 Rx 0.188 gram-magnes sul 0.225 gram #24 tabs tablet (Sutab) pantoprazole 40 mg PO PRN PRN Heartburn 02/24/22 02/24/22 History Allergies Allergy/AdvReac Type Severity Reaction Status Date / Time No Known Drug Allergies Allergy Verified 02/24/22 07:10 Exam Vital Signs (past 8 hours): - 02/24/22 07:15 Temperature 98.3 F Pulse Rate 63 Respiratory Rate 16 Blood Pressure 142/77 H Pulse Oximetry 100 Oxygen Delivery Method Room Air Oxygen Delivery Method Room Air Const General: healthy appearing Resp Effort & Inspection: normal respiratory effort GI Palpation: soft Assessment & Plan Assessment and plan (1) Colon cancer screening: Status: Acute Plan 76-year-old woman with a history of carcinoid tumor of the terminal ileum who is due for a colonoscopy for colon cancer screening. We reviewed the risks and benefits and she would like to proceed. COVID-19 COVID-19 status: Negative Result date/Date tested (Pos, Neg/Pending): 02/23/22 Time Spent With Patient Critical Care time: I spent a total of [] minutes of critical care time on this patient's care today; this time is exclusive of procedural time.
[2022-02-24] MEDS: MIDAZOLAM 5 MG/5 ML VIAL 6 MG IV (07:53)
[2022-02-24] MEDS: fentaNYL 250 MCG/5 ML INJ 125 MCG IV (07:53)
--- NOTE | 2022-02-24 08:14 | PM.OP.COLON ---
Operative Date/Time/Diagnoses Date of procedure: 02/24/22 Time of procedure: 08:15 Pre-op diagnosis: Colon cancer screening Post-op diagnosis: same Procedure & Clinicians Study performed: Colonoscopy Same procedure as scheduled: Yes Indications: Colon cancer screening Surgeon: Barrett Espino Procedure Notes Procedure in detail: Surgeon: Barrett Espino MD Procedure: The patient was brought to the endoscopy suite, placed in left lateral decubitus position. The patient was connected to monitoring devices. A time-out was performed. Sedation was administered. Once the patient was adequately sedated, a digital rectal exam was performed and was normal. The scope was then inserted and advanced to the anastomosis which was identified by the villous mucosa of the ileum. The scope was then slowly withdrawn over greater than 6 minutes. The mucosa was thoroughly inspected. No abnormalities were noted. The scope was retroflexed in the rectum. No abnormalities were noted. The scope was straightened and removed. The patient was awakened and brought to recovery. Versed: 6 mg Fentanyl: 125 mcg EBL: 0 Findings: Normal colon Scope withdrawal time: 8 Sedation minutes: 23 Post-procedure Follow up: weeks Disposition: PACU
[2022-02-24 08:22] VITALS: BP 116/46; PULSE 57; RESP 14; O2SAT 97
[2022-02-24 08:23] VITALS: BP 124/64; PULSE 67; RESP 13; TEMP 36.3; O2SAT 996
[2022-02-24 08:27] VITALS: BP 124/71; PULSE 67; RESP 14; TEMP 36.4; O2SAT 97
[2022-02-24 08:32] VITALS: BP 136/76; PULSE 61; RESP 15; TEMP 36.4; O2SAT 97
[2022-02-24 08:37] VITALS: BP 134/65; PULSE 58; RESP 16; TEMP 36.4; O2SAT 97
== END 2022-02-24 08:55 | disposition home or self-care (01) ==
PROVIDERS: PCP Family Medicine; Referring Provider Surgery; Visit Provider Surgery
PROC: 0DJD8ZZ Inspection of Lower Intestinal Tract, Via Natural or Artificial Opening Endoscopic (ICD-10-PCS; CPT 45378; principal; 2022-02-24 07:45)
DX: Z12.11 Encounter for screening for malignant neoplasm of colon (principal)
CPT/HCPCS: G0121; 99152; J2250; J3010

== ENCOUNTER → 2023-01-05 14:56 | Outpatient (CLI) | payer MEDICARE, SELFPAY ==
[2021-02-24 10:44] VITALS: BMI 21.6
--- NOTE | 2023-01-05 | DI.MG.S_ITS ---
BILATERAL DIGITAL SCREENING MAMMOGRAM 3D/2D WITH CAD: 01/05/2023 CLINICAL: Routine screening. Comparison is made to exams dated: 01/04/2022 mammogram, 12/31/2020 mammogram, and 12/31/2019 mammogram - [facility]. Both breasts are heterogeneously dense, which may obscure small masses (category c / 51-75% glandular tissue). Current study was also evaluated with a Computer Aided Detection (CAD) system. No significant masses, calcifications, or other findings are seen in either breast. There has been no significant interval change. IMPRESSION: NEGATIVE There is no mammographic evidence of malignancy. A 1 year screening mammogram is recommended. Based on the Tyrer Cuzick model (a risk assessment model) the patient's lifetime risk is 3.5% and her 10 year risk is 0.0%. According to the ACR, ACS, and NCCN guidelines, an annual breast MRI exam along with mammogram is recommended if the patient's lifetime risk is 20% or greater. This exam was interpreted at Station ID: [id number]. NOTE: For mammograms, a report in lay terms will be sent to the patient. Approximately 15% of breast malignancies will not be visualized mammographically. In the management of a palpable breast mass, a negative mammogram must not discourage biopsy of a clinically suspicious lesion. Electronically Signed By: Enrike prince/lamont:01/06/2023 08:00:13 letter sent: Normal Exam ACR BI-RADS Category 1: Negative 3341F
== END ==
PROVIDERS: PCP Family Medicine; Referring Provider Family Medicine; Visit Provider Family Medicine
DX: Z12.31 Encounter for screening mammogram for malignant neoplasm of breast (principal)
CPT/HCPCS: 77063; 77067

== ENCOUNTER → 2023-02-02 06:43 | Outpatient (CLI) | payer MEDICARE, SELFPAY ==
[2021-02-24 10:44] VITALS: BMI 21.6
[2023-02-02 09:16] LABS: Add Manual Diff / Slide Review NO; Basophils Absolute Auto 0 /uL (0-100); Basophils Percent Auto 0.7 % (0-2); Eosinophils Absolute Auto 200 /uL (0-450); Eosinophils Percent Auto 3.8 % (2-4); Hematocrit 37.2 % (36-46); Hemoglobin 12.8 g/dL (12.0-16.0); Lymphocytes Absolute Auto 1800 /uL (1100-4500); Lymphocytes Percent Auto 35.1 % (25-40); Mean Corpuscular HGB Conc 34.3 % (30-36); Mean Corpuscular Hemoglobin 32.9 PG (26-34); Mean Corpuscular Volume 95.8 fL (80-100); Monocytes Absolute Auto 600 /uL (0-900); Monocytes Percent Auto 10.6 % (3-14); Neutrophils Absolute Auto 2600 /uL (1500-7000); Neutrophils Percent Auto 49.8 % (50-75); Platelet Count 228 X10^3/uL (150-400); Red Blood Cell Count 3.88 X10^6/uL (4.0-5.2); White Blood Cell Count 5.3 X10^3/uL (4.5-11.0)
[2023-02-02 09:42] LABS: Alanine Aminotransferase 29 IU/L (<35); Albumin 4.6 g/dL (3.5-5.0); Albumin Globulin Ratio 1.6 (1.0-2.8); Alkaline Phosphatase 103 U/L (38-126); Aspartate Aminotransferase 41 IU/L (14-36); BUN Creatinine Ratio 36.2 (6-22); Bilirubin Total 0.7 mg/dL (0.2-1.3); Blood Urea Nitrogen 25 mg/dL (7-17); Calcium 9.7 mg/dL (8.4-10.2); Carbon Dioxide 32 mmol/L (22-32); Chloride 98 mmol/L (98-107); Cholesterol 203 mg/dL (140-199); Estimated Glomerular Filt Rate > 60 mL/min (>60); Globulin 2.9 g/dL (1.7-4.1); Glucose 94 mg/dL (80-110); HDL Cholesterol 82 mg/dL (40-60); HEMOLYSIS < 15 (0-50); LDL Cholesterol Calculated 87 mg/dL (<100); Potassium 3.8 mmol/L (3.4-5.1); Sodium 138 mmol/L (137-145); Total Protein 7.5 g/dL (6.3-8.2); Triglycerides 169 mg/dL (35-150)
== END ==
PROVIDERS: PCP Family Medicine; Referring Provider Family Medicine; Visit Provider Family Medicine
DX: E03.9 Hypothyroidism, unspecified (principal); E78.5 Hyperlipidemia, unspecified; I10 Essential (primary) hypertension
CPT/HCPCS: 36415; 80053; 80061; 84443; 85025

== ENCOUNTER → 2023-11-27 14:49 | Outpatient (ROUT) | payer MEDICARE, SELFPAY ==
[2021-02-24 10:44] VITALS: BMI 21.6
[2023-11-27 15:09] LABS: Bacteria Urine Occasional (0-1); Culture Indicated Urine Specimen Cultured; RBC Urine 1-5/HPF (0-5/HPF); Squamous Epithelial Cell Urine 5-10 /HPF (0-5/HPF); Transitional Epi Cells Urine 1-5/HPF (0-5/HPF); Urine Volume 10mL (spun); WBC Urine 5-10/HPF (0-5/HPF)
== END ==
PROVIDERS: PCP Family Medicine; Visit Provider Family Medicine
DX: R30.0 Dysuria (principal)
CPT/HCPCS: 81015; 87086

== ENCOUNTER → 2024-01-08 14:45 | Outpatient (CLI) | payer MEDICARE, SELFPAY ==
[2021-02-24 10:44] VITALS: BMI 21.6
--- NOTE | 2024-01-08 | DI.MG.S_ITS ---
BILATERAL DIGITAL SCREENING MAMMOGRAM 3D/2D WITH CAD: 01/08/2024 CLINICAL: Routine screening. Comparison is made to exams dated: 01/05/2023 mammogram, 01/04/2022 mammogram, 12/31/2020 mammogram, and 12/31/2019 mammogram - [facility]. Both breasts are heterogeneously dense, which may obscure small masses (category c / 51-75% glandular tissue). Current study was also evaluated with a Computer Aided Detection (CAD) system. No significant masses, calcifications, or other findings are seen in either breast. There has been no significant interval change. IMPRESSION: NEGATIVE There is no mammographic evidence of malignancy. A 1 year screening mammogram is recommended. Based on the Tyrer Cuzick model (a risk assessment model) the patient's lifetime risk is 3.2% and her 10 year risk is 0.0%. According to the ACR, ACS, and NCCN guidelines, an annual breast MRI exam along with mammogram is recommended if the patient's lifetime risk is 20% or greater. This exam was interpreted at Station ID: [id number]. NOTE: For mammograms, a report in lay terms will be sent to the patient. Approximately 15% of breast malignancies will not be visualized mammographically. In the management of a palpable breast mass, a negative mammogram must not discourage biopsy of a clinically suspicious lesion. Electronically Signed By: Diony velasco/lamont:01/10/2024 10:42:07 letter sent: Normal Exam ACR BI-RADS Category 1: Negative 3341F
== END ==
PROVIDERS: PCP Family Medicine; Referring Provider Family Medicine; Visit Provider Family Medicine
DX: Z12.31 Encounter for screening mammogram for malignant neoplasm of breast (principal); R92.333 Mammographic heterogeneous density, bilateral breasts
CPT/HCPCS: 77063; 77067

== ENCOUNTER → 2024-02-03 08:05 | Outpatient (CLI) | payer MEDICARE, SELFPAY ==
[2021-02-24 10:44] VITALS: BMI 21.6
[2024-02-03 09:03] LABS: Add Manual Diff / Slide Review NO; Basophils Absolute Auto 0 /uL (0-100); Basophils Percent Auto 0.5 % (0-2); Eosinophils Absolute Auto 200 /uL (0-450); Eosinophils Percent Auto 2.9 % (2-4); Hemoglobin 12.4 g/dL (12.0-16.0); Lymphocytes Absolute Auto 1500 /uL (1100-4500); Lymphocytes Percent Auto 24.3 % (25-40); Mean Corpuscular HGB Conc 34.4 % (30-36); Mean Corpuscular Hemoglobin 33.2 PG (26-34); Mean Corpuscular Volume 96.5 fL (80-100); Monocytes Absolute Auto 500 /uL (0-900); Monocytes Percent Auto 8.7 % (3-14); Neutrophils Absolute Auto 3800 /uL (1500-7000); Neutrophils Percent Auto 63.6 % (50-75); Platelet Count 219 X10^3/uL (150-400); Red Blood Cell Count 3.74 X10^6/uL (4.0-5.2); Red Cell Distribution Width 12.9 % (11.6-14.8)
[2024-02-03 09:22] LABS: Alanine Aminotransferase 42 IU/L (<35); Albumin 4.5 g/dL (3.5-5.0); Albumin Globulin Ratio 1.6 (1.0-2.8); Alkaline Phosphatase 119 U/L (38-126); Aspartate Aminotransferase 57 IU/L (14-36); BUN Creatinine Ratio 40.3 (6-22); Bilirubin Total 0.8 mg/dL (0.2-1.3); Blood Urea Nitrogen 31 mg/dL (7-17); Calcium 9.6 mg/dL (8.4-10.2); Carbon Dioxide 30 mmol/L (22-32); Chloride 102 mmol/L (98-107); Cholesterol 169 mg/dL (140-199); Estimated Glomerular Filt Rate > 60 mL/min (>60); Globulin 2.9 g/dL (1.7-4.1); Glucose 103 mg/dL (80-110); HDL Cholesterol 83 mg/dL (40-60); HEMOLYSIS < 15 (0-50); LDL Cholesterol Calculated 72 mg/dL (<100); Potassium 4.1 mmol/L (3.4-5.1); Sodium 137 mmol/L (137-145); Total Protein 7.4 g/dL (6.3-8.2); Triglycerides 71 mg/dL (35-150)
[2024-02-03 09:48] LABS: TSH w/ Reflex to FT4 1.82 uIU/mL (0.47-4.68)
== END ==
PROVIDERS: PCP Family Medicine; Referring Provider Family Medicine; Visit Provider Family Medicine
DX: I10 Essential (primary) hypertension (principal); E03.9 Hypothyroidism, unspecified; E78.5 Hyperlipidemia, unspecified
CPT/HCPCS: 36415; 80053; 80061; 84443; 85025

== ENCOUNTER → 2025-01-09 14:24 | Outpatient (CLI) | payer MEDICARE, SELFPAY ==
[2021-02-24 10:44] VITALS: BMI 21.6
--- NOTE | 2025-01-09 14:25 | DI.MG.S_ITS ---
MM screening mammo BI: 01/09/2025. BI-RADS: 1 CLINICAL: 79-year old female for bilateral screening mammogram. Tyrer-Cuzick lifetime risk of 2.4%. No personal or first-degree family history of breast cancer. PRIOR EXAMS 01/08/2024, 01/05/2023, 01/04/2022, 12/31/2020, 12/31/2019, 12/26/2018, 12/23/2017, 12/21/2016, 12/21/2015. MAMMOGRAPHY TECHNIQUE: 2D and 3D (tomosynthesis) digital mammographic views obtained, with additional images as needed for full coverage. Current study was also evaluated with a Computer Aided Detection (CAD) system. DENSITY C. The breasts are heterogeneously dense, which may obscure small masses. MAMMOGRAPHY FINDINGS Bilateral: No suspicious mass, asymmetry, microcalcification, or other abnormality seen. IMPRESSION: * No evidence of malignancy. RECOMMENDATIONS Bilateral * Annual screening mammography. OVERALL ASSESSMENT CATEGORY BI-RADS-1: Negative. The [employer] recommends annual screening mammography beginning at age 40 for women with average risk of breast cancer. ELECTRONICALLY SIGNED: Diony Dixon M.D. on 01/10/2025 at 09:11:45 AM PT Interpreting Station ID: [id number]
== END ==
PROVIDERS: PCP Family Medicine; Referring Provider Family Medicine; Visit Provider Family Medicine
DX: Z12.31 Encounter for screening mammogram for malignant neoplasm of breast (principal); R92.333 Mammographic heterogeneous density, bilateral breasts
CPT/HCPCS: 77063; 77067

== ENCOUNTER → 2025-02-03 07:03 | Outpatient (CLI) | payer MEDICARE, SELFPAY ==
[2021-02-24 10:44] VITALS: BMI 21.6
[2025-02-03 07:39] LABS: Add Manual Diff / Slide Review NO; Hematocrit 38.3 % (36-46); Hemoglobin 13.0 g/dL (12.0-16.0); Lymphocytes Absolute Auto 1800 /uL (1100-4500); Mean Corpuscular HGB Conc 34.0 % (30-36); Mean Corpuscular Hemoglobin 33.2 PG (26-34); Mean Corpuscular Volume 97.6 fL (80-100); Platelet Count 224 X10^3/uL (150-400)
[2025-02-03 08:09] LABS: Alanine Aminotransferase 38 IU/L (<35); Albumin 4.5 g/dL (3.5-5.0); Albumin Globulin Ratio 1.7 (1.0-2.8); Alkaline Phosphatase 112 U/L (38-126); Blood Urea Nitrogen 19 mg/dL (7-17); Calcium 9.6 mg/dL (8.4-10.2); Carbon Dioxide 30 mmol/L (22-32); Chloride 103 mmol/L (98-107); Cholesterol 157 mg/dL (140-199); Estimated Glomerular Filt Rate > 60 mL/min (>60); Globulin 2.7 g/dL (1.7-4.1); Glucose 109 mg/dL (70-99); HDL Cholesterol 81 mg/dL (40-60); HEMOLYSIS < 15 (0-50); Potassium 4.0 mmol/L (3.4-5.1); Sodium 140 mmol/L (137-145); Total Protein 7.2 g/dL (6.3-8.2); Triglycerides 64 mg/dL (35-150)
[2025-02-03 08:35] LABS: TSH w/ Reflex to FT4 0.47 uIU/mL (0.47-4.68)
== END ==
PROVIDERS: PCP Family Medicine; Referring Provider Family Medicine; Visit Provider Family Medicine
DX: I10 Essential (primary) hypertension (principal); E03.9 Hypothyroidism, unspecified; E78.5 Hyperlipidemia, unspecified
CPT/HCPCS: 36415; 80053; 80061; 84443; 85025

== ENCOUNTER → 2025-02-26 07:08 | Outpatient (CLI) | payer MEDICARE, SELFPAY ==
[2021-02-24 10:44] VITALS: BMI 21.6
--- NOTE | 2025-02-26 07:09 | DI.US.S_ITS ---
PROCEDURE: US ABDOMEN COMPLETE INDICATIONS: abd pain TECHNIQUE: Real-time scanning was performed of the abdominal and retroperitoneal organs, with image documentation. COMPARISON: None. FINDINGS: Liver: Liver is normal in size and homogeneous in echotexture. Gallbladder: No stones or wall thickening. Biliary ducts: Intrahepatic bile ducts are non-dilated. Extrahepatic bile duct caliber measures 6 mm. Normal is 6-7 mm or less in diameter, or 10 mm or less post-cholecystectomy. Pancreas: Visualized portions of the pancreas are sonographically normal. Spleen: Spleen is normal in size and homogeneous in echotexture. Kidneys: Kidneys are normal in size and echotexture. Right kidney measures 10.1 cm long; left kidney measures 10.1 cm long. No hydronephrosis or nephrolithiasis. No solid masses. Simple appearing left renal cyst measuring 4.8 cm. Simple appearing right renal cyst measuring 1.0 cm. Both are Bosniak 1 and require no further follow-up. Aorta: Visualized aorta is normal in caliber at less than 3 cm. Iliacs: Proximal common iliac arteries are normal in caliber at less than 2.5 cm. IVC: Intrahepatic inferior vena cava is patent. Miscellaneous: No free abdominal fluid. IMPRESSION: Benign Bosniak 1 renal cysts. Otherwise, no acute abnormality. No gallstones. Dictated by: Patrick Norwood M.D. on 02/26/2025 at 12:33 Approved by: Patrick Norwood M.D. on 02/26/2025 at 12:36
== END ==
LOC: US 07:08
PROVIDERS: PCP Family Medicine; Referring Provider Family Medicine; Visit Provider Family Medicine
DX: R10.9 Unspecified abdominal pain (principal); N28.1 Cyst of kidney, acquired
CPT/HCPCS: 76700

== ENCOUNTER → 2025-02-27 15:03 | Outpatient (CLI) | payer MEDICARE, SELFPAY ==
[2021-02-24 10:44] VITALS: BMI 21.6
--- NOTE | 2025-02-27 15:04 | DI.US.S_ITS ---
PROCEDURE: US PELVIC COMPLETE INDICATIONS: PELVIC CRAMPING/BURNING. PRE AND POST VOID BLADDER ALSO. TECHNIQUE: Real-time scanning was performed of the pelvic organs, with image documentation. Additional endovaginal scanning was necessary due to incomplete visualization of the adnexal and endometrial structures by transabdominal scanning. COMPARISON: [facility], , PELVIC COMPLETE, 05/07/2015, 7:56. FINDINGS: Uterus: 4.4 x 4.5 x 3.2 cm. [id number] uterine atrophy. Endometrium measures 11 mm. Multiple cystic spaces are seen within the endometrium. Multiple intramural fibroids are also present, measuring up to 1.1 cm in the mid region and 2.6 x 2.2 cm in the anterior region. There are calcifications, likely calcified fibroids. Within the cervix, there is a partially exophytic hypoechoic lesion measuring 2.7 x 2.6 cm. Ovaries: Right ovary was not well seen left ovaries likely nonenlarged but not well visualized. Other: Both ureteral jets were visualized in the bladder. Postvoid residual is 133 cc. IMPRESSION: Thickened endometrium with cystic spaces, measuring a thickness up to 11 mm. Multiple intramural fibroids. Myometrium calcifications likely senescent/calcified fibroids. Partially exophytic lesion seen within the cervix, possibly a complicated cyst with calcifications versus soft tissue lesion, measuring up to 2.7 cm. The above findings could be further assessed with direct visualization/sampling and/or pelvic MRI. Postvoid urinary bladder residual is elevated at 133 cc. Dictated by: Diony Dixon M.D. on 02/28/2025 at 7:01 Approved by: Diony Dixon M.D. on 02/28/2025 at 7:04
== END ==
PROVIDERS: PCP Family Medicine; Referring Provider Family Medicine; Visit Provider Family Medicine
DX: D25.1 Intramural leiomyoma of uterus (principal); N85.8 Other specified noninflammatory disorders of uterus; R93.89 Abnormal findings on diagnostic imaging of other specified body structures; R33.9 Retention of urine, unspecified; R10.9 Unspecified abdominal pain
CPT/HCPCS: 76830; 76856

== ENCOUNTER → 2025-05-07 | Outpatient (CLI) | payer MEDICARE, SELFPAY ==
[2021-02-24 10:44] VITALS: BMI 21.6
--- NOTE | 2025-05-07 07:08 | DI.MRI.S_ITS ---
PROCEDURE: MR PELVIS WO/W CON INDICATIONS: cervical lesion, endometrial thickening/fibroids TECHNIQUE: Coronal HASTE, sagittal breath-hold T2 FSE; axial T1 FSE with and without fat saturation through the pelvis. Optional long- and short-axis uterine nonbreath-hold T2 FSE through the uterus. Sagittal or axial dynamic VIBE during administration of contrast. Post-contrast axial or coronal VIBE/2-D FLASH with fat saturation from the iliac crests to the symphysis. Optional diffusion weighted imaging and ADC may be performed. COMPARISON: None. FINDINGS: Image quality: Nondiagnostic due to peristaltic motion, and other technical factors. Uterus: The uterus is anteverted and contains fibroids arising from the anterior myometrium, predominantly FIGO five and FIGO six measuring roughly 1.72 cm respectively. One or two smaller FIGO four fibroids are noted. Other architecture and endometrium were not well seen. Borderline prominent bilateral periuterine vasculature. Vaginal canal is within normal limits. Adnexa: Ovaries are not seen. Urinary system: Decompressed urinary bladder. The urethra appears normal as visualized. Distal ureters are not well seen. Nodes and vessels: No bulky adenopathy. Vasculature of normal caliber. Bowel and peritoneum: Large quantity distal colonic and rectal gas. Peristaltic small bowel motion. No significant free pelvic fluid. Soft tissues: No inguinal hernias. No findings of pelvic floor incompetence in the absence of provocation. Bones: Marrow demonstrates normal overall signal. IMPRESSION: Nondiagnostic study for evaluation of the uterine architecture and endometrium. Uterine fibroids are partially seen and described. No obvious pelvic adenopathy or suspicious pelvic fluid. Dictated by: Christy Ness M.D. on 05/13/2025 at 10:14 Approved by: Christy Ness M.D. on 05/13/2025 at 10:21
== END ==
LOC: MRI 07:07
PROVIDERS: PCP Family Medicine; Referring Provider Obstetrics & Gynecology; Visit Provider Obstetrics & Gynecology
DX: D25.1 Intramural leiomyoma of uterus (principal); R93.89 Abnormal findings on diagnostic imaging of other specified body structures
CPT/HCPCS: 72197; A9579